=== PATIENT | male | born 2000 | race Caucasian/White ===

== ENCOUNTER → 2019-01-09 | Emergency (ER) | payer OTHER ==
[~2019-01-09] VITALS: Ht 162.6 cm; Wt 47.6 kg
[~2019-01-09] MED LIST: HUMALOG; HUMULIN N3 ML
== END | disposition left against medical advice (07) ==
LOC: ER 01:15
DX: Z53.20 Procedure and treatment not carried out because of patient's decision for unspecified reasons (principal)

== ENCOUNTER 2019-09-09 20:41 | Emergency (ER) | payer OTHER ==
[~2019-09-09] VITALS: Ht 160 cm; Wt 49.9 kg
[2019-09-09] MEDS ORDERED: HUMULIN N100 UNIT/1 (21:11)
[2019-09-10] MEDS ORDERED: DOLOGESIC 500-1 EACH PO (03:49)
[2019-09-10] MEDS ORDERED: ALLEGRA ALLERG180 MG PO (03:49)
[2019-09-10] MEDS ORDERED: ZYNCOF 20-400120 ML PO (03:49)
== END 2019-09-10 03:59 | disposition home or self-care (01) ==
LOC: ER 20:41
DX: B34.9 Viral infection, unspecified (principal); E11.65 Type 2 diabetes mellitus with hyperglycemia

== ENCOUNTER 2019-10-16 01:10 | Emergency (ER) | payer OTHER ==
[~2019-10-16] VITALS: Ht 149.9 cm; Wt 45.4 kg
[~2019-10-16 01:10] MED LIST changes: +ALLEGRA ALLERG180 MG PO; +DOLOGESIC 500-1 EACH PO; +HUMULIN N100 UNIT/1; +ZYNCOF 20-400120 ML PO
== END 2019-10-16 10:00 | disposition home or self-care (01) ==
LOC: ER 01:10
DX: R42 Dizziness and giddiness (principal)

== ENCOUNTER 2022-11-21 11:11 | Emergency (ER) | payer OTHER ==
[~2022-11-21] VITALS: Ht 160 cm; Wt 49.9 kg
[2022-11-21] MEDS ORDERED: CIPRO500 MG PO (18:35)
[2022-11-21] MEDS ORDERED: ZOFRAN8 MG PO (18:35)
[2022-11-21] MEDS ORDERED: PEPCID AC20 MG PO (18:35)
== END 2022-11-21 18:42 | disposition home or self-care (01) ==
LOC: ER 11:11
DX: K52.9 Noninfective gastroenteritis and colitis, unspecified (principal); E11.9 Type 2 diabetes mellitus without complications; Z20.822 Contact with and (suspected) exposure to COVID-19